=== PATIENT | female | born 1970 | race Caucasian/White ===

== ENCOUNTER 2018-10-04 08:00 | Outpatient (CLI) | payer BC | END 2018-10-04 23:59 | disposition home or self-care (01) | LOC: ROC 08:00 | PROVIDERS: ATTEND Radiology Radiation Oncology | DX: Z08 Encounter for follow-up examination after completed treatment for malignant neoplasm (principal); Z85.3 Personal history of malignant neoplasm of breast | CPT/HCPCS: 99214; G0463 ==

== ENCOUNTER 2018-12-06 09:43 | Outpatient (CLI) | payer BC | END 2018-12-06 23:59 | disposition home or self-care (01) | LOC: ROC 09:43 | PROVIDERS: ATTEND Radiology Radiation Oncology | DX: C50.412 Malignant neoplasm of upper-outer quadrant of left female breast (principal) | CPT/HCPCS: 99213; G0463 ==

== ENCOUNTER 2019-03-12 09:32 | Outpatient (CLI) | payer BC ==
[2019-03-12] MEDS ORDERED: LEUPROLIDE 3.75MG SYRINGE KIT ONE (12:10)
== END 2019-03-12 23:59 | disposition home or self-care (01) ==
LOC: ROC 09:32
PROVIDERS: ATTEND Radiology Radiation Oncology
DX: C50.412 Malignant neoplasm of upper-outer quadrant of left female breast (principal)
CPT/HCPCS: 96402; 99212; J1950; G0463

== ENCOUNTER → 2019-03-17 | Outpatient (CLI) | payer BC, OTHER | END | disposition home or self-care (01) | LOC: CFH 13:21 | PROVIDERS: ATTEND Radiology Radiation Oncology | DX: N60.01 Solitary cyst of right breast (principal); R92.0 Mammographic microcalcification found on diagnostic imaging of breast; M85.88 Other specified disorders of bone density and structure, other site; C50.112 Malignant neoplasm of central portion of left female breast; Z17.0 Estrogen receptor positive status [ER+]; Z15.01 Genetic susceptibility to malignant neoplasm of breast; Z15.89 Genetic susceptibility to other disease; Z15.02 Genetic susceptibility to malignant neoplasm of ovary; Z15.09 Genetic susceptibility to other malignant neoplasm | CPT/HCPCS: 76642; 77066; 77080; G0279 ==

== ENCOUNTER → 2019-04-09 | Outpatient (CLI) | payer BC ==
[~2019-04-09] MED LIST: LEUPROLIDE 3.75MG SYRINGE KIT ONE
== END | disposition home or self-care (01) ==
LOC: ROC 09:14
PROVIDERS: ATTEND Radiology Radiation Oncology
DX: Z51.11 Encounter for antineoplastic chemotherapy (principal); C50.412 Malignant neoplasm of upper-outer quadrant of left female breast; Z17.0 Estrogen receptor positive status [ER+]
CPT/HCPCS: 96402; J1950

== ENCOUNTER 2019-05-07 07:02 | Outpatient (CLI) | payer BC ==
[2019-05-07] MEDS ORDERED: LEUPROLIDE 3.75MG SYRINGE KIT IM ONE (13:23)
== END 2019-05-07 23:59 | disposition home or self-care (01) ==
LOC: ROC 07:02
PROVIDERS: ATTEND Radiology Radiation Oncology
DX: Z51.11 Encounter for antineoplastic chemotherapy (principal); C50.412 Malignant neoplasm of upper-outer quadrant of left female breast; Z17.0 Estrogen receptor positive status [ER+]
CPT/HCPCS: 96402; J1950

== ENCOUNTER → 2019-06-04 | Outpatient (CLI) | payer BC | END | disposition home or self-care (01) | LOC: ROC 08:25 | PROVIDERS: ATTEND Radiology Radiation Oncology | DX: Z51.11 Encounter for antineoplastic chemotherapy (principal); C50.412 Malignant neoplasm of upper-outer quadrant of left female breast; Z17.0 Estrogen receptor positive status [ER+] | CPT/HCPCS: 96402; 99213; J1950; G0463 ==

== ENCOUNTER 2019-06-24 12:43 | Outpatient (CLI) | payer BC | END 2019-06-24 23:59 | disposition home or self-care (01) | LOC: CFH 12:43 | PROVIDERS: ATTEND Radiology Radiation Oncology | DX: I97.2 Postmastectomy lymphedema syndrome (principal); L90.5 Scar conditions and fibrosis of skin; M25.611 Stiffness of right shoulder, not elsewhere classified ==

== ENCOUNTER 2019-07-02 08:28 | Outpatient (CLI) | payer BC ==
[2019-07-02] MEDS ORDERED: LEUPROLIDE 3.75MG SYRINGE KIT ONE (13:15)
== END 2019-07-02 23:59 | disposition home or self-care (01) ==
LOC: ROC 08:28
PROVIDERS: ATTEND Radiology Radiation Oncology
DX: Z51.11 Encounter for antineoplastic chemotherapy (principal); C50.412 Malignant neoplasm of upper-outer quadrant of left female breast; Z17.0 Estrogen receptor positive status [ER+]
CPT/HCPCS: 96402; J1950

== ENCOUNTER 2019-09-08 13:23 | Outpatient (CLI) | payer BC | END 2019-09-08 23:59 | disposition home or self-care (01) | LOC: ROC 13:23 | PROVIDERS: ATTEND Radiology Radiation Oncology | DX: Z51.11 Encounter for antineoplastic chemotherapy (principal); C50.412 Malignant neoplasm of upper-outer quadrant of left female breast | CPT/HCPCS: 96402; J1950 ==

== ENCOUNTER 2019-10-06 08:51 | Outpatient (CLI) | payer BC ==
[2019-10-06] MEDS ORDERED: LEUPROLIDE 3.75MG SYRINGE KIT ONE (13:25)
== END 2019-10-06 23:59 | disposition home or self-care (01) ==
LOC: ROC 08:51
PROVIDERS: ATTEND Radiology Radiation Oncology
DX: Z51.11 Encounter for antineoplastic chemotherapy (principal); C50.412 Malignant neoplasm of upper-outer quadrant of left female breast
CPT/HCPCS: 96402; J1950

== ENCOUNTER 2019-11-03 08:07 | Outpatient (CLI) | payer BC ==
[2019-11-03] MEDS ORDERED: LEUPROLIDE 3.75MG SYRINGE KIT ONE (13:30)
== END 2019-11-03 23:59 | disposition home or self-care (01) ==
LOC: ROC 08:07
PROVIDERS: ATTEND Radiology Radiation Oncology
DX: Z51.11 Encounter for antineoplastic chemotherapy (principal); C50.412 Malignant neoplasm of upper-outer quadrant of left female breast
CPT/HCPCS: 96402; J1950

== ENCOUNTER → 2019-12-01 | Outpatient (CLI) | payer BC | END | disposition home or self-care (01) | LOC: ROC 12:31 | PROVIDERS: ATTEND Radiology Radiation Oncology | DX: Z51.11 Encounter for antineoplastic chemotherapy (principal); C50.412 Malignant neoplasm of upper-outer quadrant of left female breast | CPT/HCPCS: 96402; J1950 ==

== ENCOUNTER → 2019-12-18 | Outpatient (CLI) | payer BC | END | disposition home or self-care (01) | LOC: ROC 07:46 | PROVIDERS: ATTEND Radiology Radiation Oncology | DX: Z08 Encounter for follow-up examination after completed treatment for malignant neoplasm (principal); C50.412 Malignant neoplasm of upper-outer quadrant of left female breast | CPT/HCPCS: 99213; G0463 ==

== ENCOUNTER → 2019-12-29 | Outpatient (CLI) | payer BC ==
[~2019-12-29] MED LIST changes: +LEUPROLIDE 3.75MG SYRINGE KIT IM ONE; -LEUPROLIDE 3.75MG SYRINGE KIT ONE
== END | disposition home or self-care (01) ==
LOC: ROC 10:55
PROVIDERS: ATTEND Radiology Radiation Oncology
DX: Z51.11 Encounter for antineoplastic chemotherapy (principal); C50.412 Malignant neoplasm of upper-outer quadrant of left female breast
CPT/HCPCS: 96402; J1950

== ENCOUNTER 2020-01-26 07:28 | Outpatient (CLI) | payer BC ==
[2020-01-26] MEDS ORDERED: LEUPROLIDE 3.75MG SYRINGE KIT ONE (10:00)
== END 2020-01-26 23:59 | disposition home or self-care (01) ==
LOC: ROC 07:28
PROVIDERS: ATTEND Radiology Radiation Oncology
DX: Z51.11 Encounter for antineoplastic chemotherapy (principal); C50.412 Malignant neoplasm of upper-outer quadrant of left female breast
CPT/HCPCS: 96402; J1950

== ENCOUNTER 2020-02-23 07:45 | Outpatient (CLI) | payer BC ==
[2020-02-23] MEDS ORDERED: LEUPROLIDE 3.75MG SYRINGE KIT IM ONE (13:15)
== END 2020-02-23 23:59 | disposition home or self-care (01) ==
LOC: ROC 07:45
PROVIDERS: ATTEND Radiology Radiation Oncology
DX: Z51.11 Encounter for antineoplastic chemotherapy (principal); C50.412 Malignant neoplasm of upper-outer quadrant of left female breast
CPT/HCPCS: 96402; J1950

== ENCOUNTER → 2020-03-19 | Outpatient (CLI) | payer BC ==
[~2020-03-19] MED LIST changes: -LEUPROLIDE 3.75MG SYRINGE KIT IM ONE; +LEUPROLIDE 3.75MG SYRINGE KIT ONE
== END | disposition home or self-care (01) ==
LOC: ROC 11:15
PROVIDERS: ATTEND Radiology Radiation Oncology
DX: Z51.11 Encounter for antineoplastic chemotherapy (principal); C50.412 Malignant neoplasm of upper-outer quadrant of left female breast
CPT/HCPCS: 96402; J1950

== ENCOUNTER 2020-03-31 11:04 | Outpatient (CLI) | payer BC | END 2020-03-31 23:59 | disposition home or self-care (01) | LOC: CFH 11:04 | PROVIDERS: ATTEND Radiology Radiation Oncology | DX: Z12.31 Encounter for screening mammogram for malignant neoplasm of breast (principal); C50.112 Malignant neoplasm of central portion of left female breast; M81.0 Age-related osteoporosis without current pathological fracture; N60.01 Solitary cyst of right breast; N63.11 Unspecified lump in the right breast, upper outer quadrant; Z17.0 Estrogen receptor positive status [ER+] | CPT/HCPCS: 77063; 77067; 77080 ==

== ENCOUNTER → 2020-04-09 | Outpatient (CLI) | payer BC | END | disposition home or self-care (01) | LOC: CFH 07:54 | PROVIDERS: ATTEND Radiology Radiation Oncology | DX: C50.412 Malignant neoplasm of upper-outer quadrant of left female breast (principal); N63.11 Unspecified lump in the right breast, upper outer quadrant | CPT/HCPCS: 76642; 77065 ==

== ENCOUNTER 2020-04-16 10:16 | Outpatient (CLI) | payer BC ==
[2020-04-16] MEDS ORDERED: LEUPROLIDE 3.75MG SYRINGE KIT ONE (13:30)
== END 2020-04-16 23:59 | disposition home or self-care (01) ==
LOC: ROC 10:16
PROVIDERS: ATTEND Radiology Radiation Oncology
DX: Z51.11 Encounter for antineoplastic chemotherapy (principal); C50.412 Malignant neoplasm of upper-outer quadrant of left female breast; M81.0 Age-related osteoporosis without current pathological fracture; Z17.0 Estrogen receptor positive status [ER+]
CPT/HCPCS: 96402; J1950

== ENCOUNTER 2020-05-14 07:38 | Outpatient (CLI) | payer BC ==
[2020-05-14] MEDS ORDERED: LEUPROLIDE 3.75MG SYRINGE KIT ONE (13:20)
== END 2020-05-14 23:59 | disposition home or self-care (01) ==
LOC: ROC 07:38
PROVIDERS: ATTEND Radiology Radiation Oncology
DX: Z51.11 Encounter for antineoplastic chemotherapy (principal); C50.412 Malignant neoplasm of upper-outer quadrant of left female breast; M81.0 Age-related osteoporosis without current pathological fracture; Z17.0 Estrogen receptor positive status [ER+]
CPT/HCPCS: 96402; J1950

== ENCOUNTER 2020-06-11 08:17 | Outpatient (CLI) | payer BC | END 2020-06-11 23:59 | disposition home or self-care (01) | LOC: ROC 08:17 | PROVIDERS: ATTEND Radiology Radiation Oncology | DX: Z51.11 Encounter for antineoplastic chemotherapy (principal); C50.412 Malignant neoplasm of upper-outer quadrant of left female breast; M81.0 Age-related osteoporosis without current pathological fracture; Z17.0 Estrogen receptor positive status [ER+] | CPT/HCPCS: 96402; J1950 ==

== ENCOUNTER 2020-07-09 10:10 | Outpatient (CLI) | payer BC ==
[2020-07-09] MEDS ORDERED: LEUPROLIDE 3.75MG SYRINGE KIT ONE (13:45)
== END 2020-07-09 23:59 | disposition home or self-care (01) ==
LOC: ROC 10:10
PROVIDERS: ATTEND Radiology Radiation Oncology
DX: Z51.11 Encounter for antineoplastic chemotherapy (principal); C50.412 Malignant neoplasm of upper-outer quadrant of left female breast; M81.0 Age-related osteoporosis without current pathological fracture; Z17.0 Estrogen receptor positive status [ER+]
CPT/HCPCS: 96402; J1950

== ENCOUNTER 2020-08-05 09:09 | Outpatient (CLI) | payer BC ==
[2020-08-05] MEDS ORDERED: LEUPROLIDE 3.75MG SYRINGE KIT ONE (11:45)
== END 2020-08-05 23:59 | disposition home or self-care (01) ==
LOC: ROC 09:09
PROVIDERS: ATTEND Radiology Radiation Oncology
DX: Z51.11 Encounter for antineoplastic chemotherapy (principal); C50.412 Malignant neoplasm of upper-outer quadrant of left female breast; M81.0 Age-related osteoporosis without current pathological fracture; Z17.0 Estrogen receptor positive status [ER+]
CPT/HCPCS: 96402; J1950

== ENCOUNTER 2020-09-02 08:24 | Outpatient (CLI) | payer BC ==
[2020-09-02] MEDS ORDERED: LEUPROLIDE 3.75MG SYRINGE KIT ONE (14:00)
== END 2020-09-02 23:59 | disposition home or self-care (01) ==
LOC: ROC 08:24
PROVIDERS: ATTEND Radiology Radiation Oncology
DX: C50.412 Malignant neoplasm of upper-outer quadrant of left female breast (principal); M81.0 Age-related osteoporosis without current pathological fracture; Z17.0 Estrogen receptor positive status [ER+]
CPT/HCPCS: 96402; J1950

== ENCOUNTER → 2020-09-30 | Outpatient (CLI) | payer BC | END | disposition home or self-care (01) | LOC: ROC 10:01 | PROVIDERS: ATTEND Radiology Radiation Oncology | DX: Z51.11 Encounter for antineoplastic chemotherapy (principal); C50.412 Malignant neoplasm of upper-outer quadrant of left female breast; M81.0 Age-related osteoporosis without current pathological fracture; Z17.0 Estrogen receptor positive status [ER+] | CPT/HCPCS: 96402; J1950 ==

== ENCOUNTER 2020-10-28 09:22 | Outpatient (CLI) | payer BC ==
[2020-10-28] MEDS ORDERED: LEUPROLIDE 3.75MG SYRINGE KIT ONE (13:30)
== END 2020-10-28 23:59 | disposition home or self-care (01) ==
LOC: ROC 09:22
PROVIDERS: ATTEND Radiology Radiation Oncology
DX: Z51.11 Encounter for antineoplastic chemotherapy (principal); C50.412 Malignant neoplasm of upper-outer quadrant of left female breast; M81.0 Age-related osteoporosis without current pathological fracture; Z17.0 Estrogen receptor positive status [ER+]
CPT/HCPCS: 96402; J1950

== ENCOUNTER → 2020-11-18 | Outpatient (CLI) | payer BC | END | disposition home or self-care (01) | LOC: ROC 09:14 | PROVIDERS: ATTEND Radiology Radiation Oncology | DX: C50.412 Malignant neoplasm of upper-outer quadrant of left female breast (principal); M81.0 Age-related osteoporosis without current pathological fracture; Z17.0 Estrogen receptor positive status [ER+] | CPT/HCPCS: 99212; G0463 ==

== ENCOUNTER → 2020-11-25 | Outpatient (CLI) | payer BC ==
[~2020-11-25] MED LIST changes: +LEUPROLIDE 3.75MG SYRINGE KIT IM ONE; -LEUPROLIDE 3.75MG SYRINGE KIT ONE
== END | disposition home or self-care (01) ==
LOC: ROC 13:21
PROVIDERS: ATTEND Radiology Radiation Oncology
DX: Z51.11 Encounter for antineoplastic chemotherapy (principal); C50.412 Malignant neoplasm of upper-outer quadrant of left female breast; M81.0 Age-related osteoporosis without current pathological fracture; Z17.0 Estrogen receptor positive status [ER+]
CPT/HCPCS: 96402; J1950

== ENCOUNTER 2020-12-24 09:27 | Outpatient (CLI) | payer BC ==
[2020-12-24] MEDS ORDERED: LEUPROLIDE 3.75MG SYRINGE KIT ONE (11:00)
== END 2020-12-24 23:59 | disposition home or self-care (01) ==
LOC: ROC 09:27
PROVIDERS: ATTEND Radiology Radiation Oncology
DX: Z51.11 Encounter for antineoplastic chemotherapy (principal); C50.412 Malignant neoplasm of upper-outer quadrant of left female breast; M81.0 Age-related osteoporosis without current pathological fracture; Z17.0 Estrogen receptor positive status [ER+]
CPT/HCPCS: 96402; J1950

== ENCOUNTER → 2021-01-21 | Outpatient (CLI) | payer BC | END | disposition home or self-care (01) | LOC: ROC 09:02 | PROVIDERS: ATTEND Radiology Radiation Oncology | DX: Z51.11 Encounter for antineoplastic chemotherapy (principal); C50.412 Malignant neoplasm of upper-outer quadrant of left female breast; M81.0 Age-related osteoporosis without current pathological fracture; Z17.0 Estrogen receptor positive status [ER+] | CPT/HCPCS: 96402; J1950 ==